=== PATIENT | male | born 1965 | race Caucasian/White ===

== ENCOUNTER 2020-01-09 21:21 | Inpatient (IN) ==
[2020-01-09] MEDS ORDERED: ONDANSETRON 4 MG/2 ML VIAL IV STA (21:40)
[2020-01-09] MEDS ORDERED: fentaNYL 100 MCG/2 ML VIAL IV STA (21:40)
[2020-01-09] MEDS ORDERED: LACTATED RINGERS 1,000 ML IV STA (21:40)
[2020-01-09 21:48] LABS: Basophils % 0.3 % (0.0-0.8); Eosinophils # 0.1 10*3/uL (0.0-0.87); Eosinophils % 0.4 % (0.00-10.9); Hematocrit 37.1 VOL% (42.0-52.0); Hemoglobin 11.2 GM/DL (14.0-18.0); Immature Granulocytes % 0.8 %; Lymphocytes # 0.7 10*3/uL (1.4-4.0); Mean Corpuscular HGB Conc 30.2 GM/DL (32-36); Mean Corpuscular Volume 94.6 FL (87-102); Mean Platelet Volume 10.5 FL (9.6-12.0); Neutrophils % 86.5 % (38.7-73.9); Platelet Count 216 T/CUMM (130-400); Red Blood Count 3.92 MC/CUMM (3.8-5.5); Red Cell Distribution Width 13.2 % (9.3-17.3); White Blood Count 11.9 T/CUMM (4-12)
[2020-01-09 22:10] LABS: Alanine Aminotransferase 34 U/L (16-61); Albumin 3.4 G/DL (3.4-5.0); Alkaline Phosphatase 94 U/L (45-117); Amylase 42 U/L (25-115); Aspartate Amino Transferase 61 U/L (0-37); Blood Urea Nitrogen 26 MG/DL (7-18); CKMB % 1.9 %; Estimated Glom Filtration Rate 79 ML/MIN; Ferritin 141.8 ng/ml (26-388); Glucose 101 MG/DL (74-106); Total Protein 7.7 G/DL (6.4-8.3)
[2020-01-09 22:11] LABS: Troponin I 0.052 NG/ML (0.00-0.045)
[2020-01-09 22:26] LABS: PT Patient Result 10.7 SECS (9.8-11.9); Partial Thromboplastin Time 28.9 SECS (23.9-33.8)
[2020-01-09] MEDS ORDERED: AZITHROMYCIN INJ 500 MG in SODIUM CHLORIDE 0.9% 250 ML IV STA (23:31)
[2020-01-09] MEDS ORDERED: ACETAMINOPHEN 500 MG TABLET PO PRN (23:34)
[2020-01-09] MEDS ORDERED: ONDANSETRON 4 MG/2 ML VIAL IV PRN (23:34)
[2020-01-09] MEDS ORDERED: fentaNYL 100 MCG/2 ML VIAL IV PRN (23:34)
[2020-01-10] MEDS ORDERED: hydrALAZINE 20 MG/1 ML VIAL IV ONE (00:05)
[2020-01-10] MEDS ORDERED: hydrALAZINE 20 MG/1 ML VIAL ONE (00:14)
[2020-01-10] MEDS ORDERED: hydrALAZINE 20 MG/1 ML VIAL IV PRN (01:03)
[2020-01-10] MEDS: HYDROmorphone 2 MG/1 ML VIAL IV PRN ×2 (01:39→21:13)
[2020-01-10 06:21] LABS: Basophils % 0.4 % (0.0-0.8); Eosinophils # 0.1 10*3/uL (0.0-0.87); Hematocrit 36.2 VOL% (42.0-52.0); Hemoglobin 11.3 GM/DL (14.0-18.0); Immature Granulocytes % 0.6 %; Immature Granulocytes Absolute 0.05 #; Lymphocytes # 1.3 10*3/uL (1.4-4.0); Lymphocytes % 16.6 % (21.2-54.2); Mean Corpuscular HGB Conc 31.2 GM/DL (32-36); Mean Corpuscular Volume 93.1 FL (87-102); Mean Platelet Volume 10.3 FL (9.6-12.0); Monocytes % 6.7 % (1.7-12.7); Neutrophils % 74.7 % (38.7-73.9); Platelet Count 205 T/CUMM (130-400); Red Blood Count 3.89 MC/CUMM (3.8-5.5); Red Cell Distribution Width 13.1 % (9.3-17.3); White Blood Count 7.8 T/CUMM (4-12)
[2020-01-10 06:38] LABS: Apearance,Urine CLEAR (Clear); Bilirubin,Urine Negative (Negative); Blood, Urine Negative (Negative); Glucose,Urine (UA) Negative (Negative); Ketones,Urine Negative (Negative); Nitrite,Urine Negative (Negative); Protein,Urine Negative; RBC,Urine 2 /HPF (0-4); Urine Color Yellow (Yellow); Urine Specific Gravity 1.029 (1.001-1.035); Urine Urobilinogen < 2.0 EU/DL (0.2-1.0); WBC,Urine <1 /HPF (0-6)
[2020-01-10 06:45] LABS: Barbiturates Screen,Urine Negative (Negative); Benzodiazepines Screen,Urine Negative (Negative); Cannabinoid Screen,Urine Negative (Negative); Opiate Screen,Urine Positive (Negative); Phencyclidine Screen,Urine Negative (Negative)
[2020-01-10] MEDS: PANTOPRAZOLE 40 MG TABLET PO SCH (08:56)
[2020-01-10] MEDS: cloNIDine 0.1 MG TABLET PO SCH ×2 (08:56→20:53)
[2020-01-10] MEDS: HYDROXYCHLOROQUINE 200 MG TABLET PO SCH ×2 (08:56→20:53)
[2020-01-10] MEDS ORDERED: ALBUTEROL/IPRATROPIUM 3 ML NEB RESP TX PRN (09:02)
[2020-01-10] MEDS ORDERED: LIDOCAINE 1%/EPI INJ 20 ML VIAL ONE (09:39)
[2020-01-10 09:45] LABS: Calcium 8.5 MG/DL (8.5-10.1); Osmolality,Calculated 273.8 MOS/KG (273-304)
[2020-01-10] MEDS ORDERED: ALBUTEROL/IPRATROPIUM 3 ML NEB RESP TX SCH (10:00)
[2020-01-10] MEDS: LACTATED RINGERS 1,000 ML IV SCH ×2 (10:46→17:53)
[2020-01-10] MEDS ORDERED: KETAMINE 500 MG/10 ML VIAL ONE (11:24)
[2020-01-10] MEDS ORDERED: fentaNYL 100 MCG/2 ML VIAL ONE (11:25)
[2020-01-10] MEDS ORDERED: MIDAZOLAM 2 MG/2 ML VIAL ONE (11:25)
[2020-01-10] MEDS: ALBUTEROL INHALER 8 GM INH SCH ×3 (12:32→20:53)
[2020-01-10] MEDS ORDERED: AZITHROMYCIN INJ 500 MG in SODIUM CHLORIDE 0.9% 250 ML IV SCH (22:00)
[2020-01-11] MEDS: ALBUTEROL INHALER 8 GM INH SCH ×7 (00:31→23:39)
[2020-01-11] MEDS: LACTATED RINGERS 1,000 ML IV SCH (02:04)
[2020-01-11] MEDS: HYDROmorphone 2 MG/1 ML VIAL IV PRN ×3 (02:04→08:50)
[2020-01-11 06:06] LABS: Basophils # 0.1 10*3/uL (0.0-0.2); Basophils % 0.7 % (0.0-0.8); Eosinophils # 0.3 10*3/uL (0.0-0.87); Eosinophils % 3.6 % (0.00-10.9); Hematocrit 37.2 VOL% (42.0-52.0); Hemoglobin 11.5 GM/DL (14.0-18.0); Immature Granulocytes % 0.4 %; Immature Granulocytes Absolute 0.03 #; Lymphocytes # 1.6 10*3/uL (1.4-4.0); Lymphocytes % 20.4 % (21.2-54.2); Mean Corpuscular HGB Conc 30.9 GM/DL (32-36); Mean Corpuscular Volume 93.5 FL (87-102); Mean Platelet Volume 10.6 FL (9.6-12.0); Monocytes % 7.3 % (1.7-12.7); Neutrophils % 67.6 % (38.7-73.9); Platelet Count 197 T/CUMM (130-400); Red Blood Count 3.98 MC/CUMM (3.8-5.5); Red Cell Distribution Width 12.9 % (9.3-17.3); White Blood Count 7.7 T/CUMM (4-12)
[2020-01-11 06:37] LABS: Albumin 2.5 G/DL (3.4-5.0); Calcium 8.6 MG/DL (8.5-10.1); Total Protein 6.5 G/DL (6.4-8.3)
[2020-01-11] MEDS ORDERED: HYDROXYCHLOROQUINE 200 MG TABLET PO SCH (09:00)
[2020-01-11] MEDS: cloNIDine 0.1 MG TABLET PO SCH ×2 (09:42→20:29)
[2020-01-11] MEDS: AZITHROMYCIN 250 MG TABLET PO SCH (09:42)
[2020-01-11] MEDS: PANTOPRAZOLE 40 MG TABLET PO SCH (09:42)
[2020-01-12] MEDS: ALBUTEROL INHALER 8 GM INH SCH ×5 (03:56→20:36)
[2020-01-12 06:34] LABS: Basophils # 0.1 10*3/uL (0.0-0.2); Basophils % 0.8 % (0.0-0.8); Eosinophils # 0.6 10*3/uL (0.0-0.87); Eosinophils % 7.7 % (0.00-10.9); Hematocrit 42.7 VOL% (42.0-52.0); Hemoglobin 13.4 GM/DL (14.0-18.0); Immature Granulocytes % 0.7 %; Immature Granulocytes Absolute 0.05 #; Lymphocytes # 1.2 10*3/uL (1.4-4.0); Lymphocytes % 16.4 % (21.2-54.2); Mean Corpuscular HGB Conc 31.4 GM/DL (32-36); Mean Platelet Volume 10.5 FL (9.6-12.0); Monocytes % 8.2 % (1.7-12.7); Neutrophils % 66.2 % (38.7-73.9); Platelet Count 228 T/CUMM (130-400); Red Blood Count 4.64 MC/CUMM (3.8-5.5); Red Cell Distribution Width 12.6 % (9.3-17.3); White Blood Count 7.4 T/CUMM (4-12)
[2020-01-12 06:42] LABS: Calcium 8.5 MG/DL (8.5-10.1); Osmolality,Calculated 271.1 MOS/KG (273-304)
[2020-01-12] MEDS: AZITHROMYCIN 250 MG TABLET PO SCH (10:39)
[2020-01-12] MEDS: PANTOPRAZOLE 40 MG TABLET PO SCH (10:39)
[2020-01-12] MEDS: cloNIDine 0.1 MG TABLET PO SCH ×2 (10:39→21:16)
[2020-01-12] MEDS: HYDROmorphone 2 MG/1 ML VIAL IV PRN (21:24)
[2020-01-13] MEDS: ALBUTEROL INHALER 8 GM INH SCH ×6 (00:30→20:36)
[2020-01-13 06:07] LABS: Basophils # 0.1 10*3/uL (0.0-0.2); Basophils % 0.6 % (0.0-0.8); Eosinophils % 11.9 % (0.00-10.9); Hematocrit 40.3 VOL% (42.0-52.0); Hemoglobin 12.8 GM/DL (14.0-18.0); Immature Granulocytes % 0.7 %; Immature Granulocytes Absolute 0.06 #; Lymphocytes # 1.2 10*3/uL (1.4-4.0); Lymphocytes % 14.9 % (21.2-54.2); Mean Corpuscular HGB Conc 31.8 GM/DL (32-36); Mean Platelet Volume 10.1 FL (9.6-12.0); Monocytes % 8.6 % (1.7-12.7); Neutrophils % 63.3 % (38.7-73.9); Platelet Count 247 T/CUMM (130-400); Red Blood Count 4.48 MC/CUMM (3.8-5.5); Red Cell Distribution Width 12.7 % (9.3-17.3); White Blood Count 8.2 T/CUMM (4-12)
[2020-01-13 06:30] LABS: Calcium 8.4 MG/DL (8.5-10.1); Osmolality,Calculated 279.8 MOS/KG (273-304)
[2020-01-13] MEDS: cloNIDine 0.1 MG TABLET PO SCH ×2 (09:14→20:40)
[2020-01-13] MEDS: PANTOPRAZOLE 40 MG TABLET PO SCH (09:14)
[2020-01-13] MEDS: AZITHROMYCIN 250 MG TABLET PO SCH (09:15)
[2020-01-13 09:24] LABS: Band Neutrophils 2 % (0-10); Eosinophils 8 % (0-10); Hypochromasia 1+; Lymphocytes 9 % (20-55); Segmented Neutrophils 76 % (50-85); Total Cells Counted 100
[2020-01-13 09:25] LABS: Platelet Estimate Normal; Polychromasia Slight
[2020-01-13] MEDS: HYDROmorphone 2 MG/1 ML VIAL IV PRN (21:17)
[2020-01-14] MEDS: ALBUTEROL INHALER 8 GM INH SCH ×4 (00:05→11:24)
[2020-01-14] MEDS: HYDROmorphone 2 MG/1 ML VIAL IV PRN (08:27)
[2020-01-14] MEDS: PANTOPRAZOLE 40 MG TABLET PO SCH (08:27)
[2020-01-14] MEDS: AZITHROMYCIN 250 MG TABLET PO SCH (08:27)
[2020-01-14] MEDS: cloNIDine 0.1 MG TABLET PO SCH (08:28)
[2020-01-14 12:57] VITALS: BP 114/81
== END 2020-01-14 13:25 | disposition home or self-care (01) | DRG 964 ==
LOC: EDUNIT# → N.ED 21:21 → N.EDINP 23:33 → N.2E 01-10 00:03
PROVIDERS: ADMIT Surgery; ATTEND Surgery

== ENCOUNTER 2020-10-01 01:25 | Observation (INO) ==
[2020-10-01] MEDS ORDERED: ONDANSETRON 4 MG/2 ML VIAL IV PRN (03:58)
[2020-10-01] MEDS ORDERED: DEXTROSE 50% 25 GM/50 ML VIAL IV PRN (03:58)
[2020-10-01] MEDS ORDERED: NICOTINE 21 MG/24 HR PATCH TRANSDERM PRN (03:58)
[2020-10-01] MEDS ORDERED: GLUCAGON 1 MG VIAL IM PRN (03:58)
[2020-10-01] MEDS ORDERED: diphenhydrAMINE CAP 25 MG CAPSULE PO PRN (03:58)
[2020-10-01] MEDS ORDERED: guaiFENesin/DM ER 600-30 MG TABLET PO PRN (03:58)
[2020-10-01] MEDS ORDERED: ACETAMINOPHEN 325 MG TABLET PO PRN (03:58)
[2020-10-01 06:31] LABS: Basophils # 0.1 10*3/uL (0.0-0.2); Basophils % 0.7 % (0.0-0.8); Eosinophils # 0.3 10*3/uL (0.0-0.87); Eosinophils % 3.4 % (0.00-10.9); Hematocrit 37.9 VOL% (42.0-52.0); Hemoglobin 11.8 GM/DL (14.0-18.0); Immature Granulocytes % 1.3 %; Immature Granulocytes Absolute 0.11 #; Lymphocytes # 1.5 10*3/uL (1.4-4.0); Lymphocytes % 18.6 % (21.2-54.2); Mean Corpuscular HGB Conc 31.1 GM/DL (32-36); Mean Corpuscular Volume 86.1 FL (87-102); Mean Platelet Volume 11.4 FL (9.6-12.0); Monocytes % 8.3 % (1.7-12.7); Neutrophils % 67.7 % (38.7-73.9); Platelet Count 224 T/CUMM (130-400); White Blood Count 8.2 T/CUMM (4-12)
[2020-10-01 06:48] LABS: Albumin 2.9 G/DL (3.4-5.0); Bilirubin,Total 0.7 MG/DL (0.2-1.0); Calcium 8.5 MG/DL (8.5-10.1); Osmolality,Calculated 285.3 MOS/KG (273-304); Risk Ratio 2.57; VLDL CHOLESTEROL 20.4 MG/DL
[2020-10-01] MEDS ORDERED: carvediloL 3.125 MG TABLET PO SCH (09:18)
[2020-10-01] MEDS: hydrALAZINE 20 MG/1 ML VIAL IV PRN ×2 (09:46→15:53)
[2020-10-01] MEDS: ASPIRIN EC 81 MG TABLET PO SCH (09:46)
[2020-10-01] MEDS: PANTOPRAZOLE 20 MG TABLET PO SCH (12:38)
[2020-10-01] MEDS: carvediloL 6.25 MG TABLET PO SCH (22:11)
[2020-10-02] MEDS: hydrALAZINE 20 MG/1 ML VIAL IV PRN (05:32)
[2020-10-02 05:57] LABS: Basophils # 0.1 10*3/uL (0.0-0.2); Basophils % 0.8 % (0.0-0.8); Eosinophils # 0.4 10*3/uL (0.0-0.87); Eosinophils % 4.8 % (0.00-10.9); Hematocrit 38.5 VOL% (42.0-52.0); Immature Granulocytes % 0.8 %; Immature Granulocytes Absolute 0.06 #; Lymphocytes # 1.6 10*3/uL (1.4-4.0); Lymphocytes % 21.5 % (21.2-54.2); Mean Corpuscular HGB Conc 31.2 GM/DL (32-36); Mean Corpuscular Volume 85.4 FL (87-102); Mean Platelet Volume 10.4 FL (9.6-12.0); Monocytes % 9.4 % (1.7-12.7); Neutrophils % 62.7 % (38.7-73.9); Platelet Count 217 T/CUMM (130-400); Red Blood Count 4.51 MC/CUMM (3.8-5.5); Red Cell Distribution Width 14.9 % (9.3-17.3); White Blood Count 7.3 T/CUMM (4-12)
[2020-10-02 06:06] LABS: Osmolality,Calculated 282.7 MOS/KG (273-304)
[2020-10-02 07:02] LABS: HIV Antigen/Antibody Result Nonreactive (Nonreactive)
[2020-10-02] MEDS: ASPIRIN EC 81 MG TABLET PO SCH (09:26)
[2020-10-02] MEDS: carvediloL 6.25 MG TABLET PO SCH ×2 (09:26→21:29)
[2020-10-02] MEDS: PANTOPRAZOLE 20 MG TABLET PO SCH (09:26)
[2020-10-03 05:42] LABS: Basophils # 0.1 10*3/uL (0.0-0.2); Basophils % 0.7 % (0.0-0.8); Eosinophils # 0.3 10*3/uL (0.0-0.87); Eosinophils % 4.2 % (0.00-10.9); Hematocrit 40.5 VOL% (42.0-52.0); Hemoglobin 12.7 GM/DL (14.0-18.0); Immature Granulocytes % 0.7 %; Immature Granulocytes Absolute 0.06 #; Lymphocytes # 1.6 10*3/uL (1.4-4.0); Mean Corpuscular HGB Conc 31.4 GM/DL (32-36); Mean Corpuscular Volume 84.4 FL (87-102); Mean Platelet Volume 10.3 FL (9.6-12.0); Monocytes % 9.6 % (1.7-12.7); Neutrophils % 64.8 % (38.7-73.9); Platelet Count 237 T/CUMM (130-400); Red Cell Distribution Width 14.9 % (9.3-17.3)
[2020-10-03 06:17] LABS: Calcium 8.5 MG/DL (8.5-10.1); Osmolality,Calculated 278.7 MOS/KG (273-304)
[2020-10-03] MEDS: ASPIRIN EC 81 MG TABLET PO SCH (09:01)
[2020-10-03] MEDS: PANTOPRAZOLE 20 MG TABLET PO SCH (09:02)
[2020-10-03] MEDS: carvediloL 6.25 MG TABLET PO SCH (09:02)
[2020-10-03] MEDS: hydrALAZINE 20 MG/1 ML VIAL IV PRN (09:04)
[2020-10-03 15:38] VITALS: BP 154/93
== END 2020-10-03 14:06 | disposition home or self-care (01) ==
LOC: N.TELEN → SUATTDRO 02:51
PROVIDERS: ADMIT Internal Medicine; ATTEND Internal Medicine

== ENCOUNTER 2020-10-04 19:20 | Observation (INO) ==
[2020-10-04 19:42] LABS: Basophils # 0.1 10*3/uL (0.0-0.2); Basophils % 0.9 % (0.0-0.8); Eosinophils # 0.3 10*3/uL (0.0-0.87); Hematocrit 37.4 VOL% (42.0-52.0); Hemoglobin 11.8 GM/DL (14.0-18.0); Immature Granulocytes Absolute 0.09 #; Lymphocytes # 1.5 10*3/uL (1.4-4.0); Lymphocytes % 16.4 % (21.2-54.2); Mean Corpuscular HGB Conc 31.6 GM/DL (32-36); Mean Corpuscular Volume 85.4 FL (87-102); Mean Platelet Volume 10.3 FL (9.6-12.0); Monocytes % 8.5 % (1.7-12.7); Neutrophils % 70.2 % (38.7-73.9); Platelet Count 234 T/CUMM (130-400); Red Blood Count 4.38 MC/CUMM (3.8-5.5); White Blood Count 9.1 T/CUMM (4-12)
[2020-10-04 20:00] LABS: Alanine Aminotransferase 16 U/L (16-61); Alkaline Phosphatase 145 U/L (45-117); Aspartate Amino Transferase 17 U/L (0-37); Bilirubin,Total < 0.39 MG/DL (0.2-1.0); Blood Urea Nitrogen 23 MG/DL (7-18); Calcium 8.4 MG/DL (8.5-10.1); Estimated Glom Filtration Rate 63 ML/MIN; Glucose 124 MG/DL (74-106); Osmolality,Calculated 287.1 MOS/KG (273-304); Total Protein 6.7 G/DL (6.4-8.3)
[2020-10-04] MEDS ORDERED: LEVOFLOXACIN INJ 500 MG in PREMIX 1 EACH IV STA (21:24)
[2020-10-04] MEDS ORDERED: FUROSEMIDE 40 MG/4 ML VIAL IV STA (21:24)
[2020-10-04] MEDS ORDERED: GLUCAGON 1 MG VIAL IM PRN (21:30)
[2020-10-04] MEDS ORDERED: ACETAMINOPHEN 325 MG TABLET PO PRN (21:30)
[2020-10-04] MEDS ORDERED: MAGNESIUM SULF RIDER 2 GM in PREMIX 1 EACH IV PRN (21:30)
[2020-10-04] MEDS ORDERED: MAGNESIUM SULF RIDER 4 GM in PREMIX 1 EACH IV PRN (21:30)
[2020-10-04] MEDS ORDERED: ZALEPLON 5 MG CAPSULE PO PRN (21:30)
[2020-10-04] MEDS ORDERED: ONDANSETRON 4 MG/2 ML VIAL IV PRN (21:30)
[2020-10-04] MEDS ORDERED: DEXTROSE 50% 25 GM/50 ML VIAL IV PRN (21:30)
[2020-10-04] MEDS ORDERED: KETOROLAC 10 MG TABLET PO PRN (21:35)
[2020-10-04 21:46] LABS: Bilirubin,Urine Negative (Negative); Blood, Urine Small mg/dL (Negative); Glucose,Urine (UA) Negative (Negative); Ketones,Urine Negative (Negative); Mucus,Urine Occasional /LPF (Occasional); Nitrite,Urine Negative (Negative); Protein,Urine Negative; RBC,Urine <1 /HPF (0-4); Urine Appearance CLEAR (Clear); Urine Color Yellow (Yellow); Urine Urobilinogen < 2.0 EU/DL (0.2-1.0); WBC,Urine <1 /HPF (0-6)
[2020-10-04 21:52] LABS: Barbiturates Screen,Urine Negative (Negative); Benzodiazepines Screen,Urine Negative (Negative); Cannabinoid Screen,Urine Negative (Negative); Opiate Screen,Urine Negative (Negative); Phencyclidine Screen,Urine Negative (Negative)
[2020-10-04] MEDS ORDERED: RALTEGRAVIR 400 MG TABLET PO SCH (22:00)
[2020-10-04] MEDS: ENOXAPARIN 40 MG/0.4 ML SYRINGE SUBCUT SCH (22:10)
[2020-10-04] MEDS: carvediloL 6.25 MG TABLET PO SCH (22:15)
[2020-10-05] MEDS: ALBUTEROL/IPRATROPIUM 3 ML NEB RESP TX SCH ×4 (01:00→19:45)
[2020-10-05 06:32] LABS: Basophils # 0.1 10*3/uL (0.0-0.2); Basophils % 0.6 % (0.0-0.8); Eosinophils # 0.3 10*3/uL (0.0-0.87); Eosinophils % 3.4 % (0.00-10.9); Hemoglobin 12.5 GM/DL (14.0-18.0); Immature Granulocytes % 0.9 %; Immature Granulocytes Absolute 0.08 #; Lymphocytes # 1.4 10*3/uL (1.4-4.0); Lymphocytes % 16.5 % (21.2-54.2); Mean Corpuscular HGB Conc 31.3 GM/DL (32-36); Mean Corpuscular Volume 84.7 FL (87-102); Mean Platelet Volume 10.9 FL (9.6-12.0); Monocytes % 8.6 % (1.7-12.7); Platelet Count 228 T/CUMM (130-400); Red Blood Count 4.72 MC/CUMM (3.8-5.5); Red Cell Distribution Width 14.9 % (9.3-17.3); White Blood Count 8.5 T/CUMM (4-12)
[2020-10-05 07:04] LABS: Bilirubin,Total 0.5 MG/DL (0.2-1.0); Calcium 8.7 MG/DL (8.5-10.1); Osmolality,Calculated 276.7 MOS/KG (273-304); Total Protein 7.3 G/DL (6.4-8.3)
[2020-10-05] MEDS ORDERED: INSULIN REGULAR 100 UNIT/ML SUBCUT SCH (07:30)
[2020-10-05] MEDS: PANTOPRAZOLE 40 MG TABLET PO SCH (09:00)
[2020-10-05] MEDS ORDERED: EMTRICITABINE/TENOFOVIR 200-300 MG TABLET PO SCH (09:00)
[2020-10-05] MEDS: carvediloL 6.25 MG TABLET PO SCH ×2 (09:00→16:45)
[2020-10-05] MEDS: ASPIRIN EC 81 MG TABLET PO SCH (09:00)
[2020-10-05] MEDS: FUROSEMIDE 40 MG/4 ML VIAL IV SCH ×2 (09:00→16:46)
[2020-10-05] MEDS: CYCLOBENZAPRINE 10 MG TABLET PO SCH (17:24)
[2020-10-05] MEDS: tiZANidine 4 MG TABLET PO SCH (17:24)
[2020-10-05] MEDS: ENOXAPARIN 40 MG/0.4 ML SYRINGE SUBCUT SCH (20:34)
[2020-10-05] MEDS ORDERED: LEVOFLOXACIN INJ 750 MG in PREMIX 1 EACH IV SCH (21:00)
[2020-10-06] MEDS: ALBUTEROL/IPRATROPIUM 3 ML NEB RESP TX SCH ×2 (00:50→07:35)
[2020-10-06 06:41] LABS: Basophils # 0.1 10*3/uL (0.0-0.2); Basophils % 0.7 % (0.0-0.8); Eosinophils # 0.3 10*3/uL (0.0-0.87); Eosinophils % 3.2 % (0.00-10.9); Hematocrit 43.1 VOL% (42.0-52.0); Hemoglobin 13.6 GM/DL (14.0-18.0); Immature Granulocytes % 0.9 %; Immature Granulocytes Absolute 0.07 #; Lymphocytes # 1.4 10*3/uL (1.4-4.0); Lymphocytes % 17.6 % (21.2-54.2); Mean Corpuscular HGB Conc 31.6 GM/DL (32-36); Mean Corpuscular Volume 84.8 FL (87-102); Mean Platelet Volume 10.5 FL (9.6-12.0); Neutrophils % 67.6 % (38.7-73.9); Platelet Count 236 T/CUMM (130-400); Red Blood Count 5.08 MC/CUMM (3.8-5.5); Red Cell Distribution Width 14.7 % (9.3-17.3); White Blood Count 8.1 T/CUMM (4-12)
[2020-10-06 07:05] LABS: Calcium 8.6 MG/DL (8.5-10.1)
[2020-10-06] MEDS: carvediloL 6.25 MG TABLET PO SCH (09:50)
[2020-10-06] MEDS: ASPIRIN EC 81 MG TABLET PO SCH (09:50)
[2020-10-06] MEDS: PANTOPRAZOLE 40 MG TABLET PO SCH (09:50)
[2020-10-06 11:51] VITALS: BP 138/80
== END 2020-10-06 12:49 | disposition home or self-care (01) ==
LOC: N.ED 19:20 → N.EDINP 19:20 → N.5E 22:53
PROVIDERS: ADMIT Internal Medicine; ATTEND Internal Medicine

== ENCOUNTER 2021-03-20 21:39 | Inpatient (IN) ==
[2021-03-20 22:01] LABS: Basophils % 0.4 % (0.0-0.8); Eosinophils # 0.1 10*3/uL (0.0-0.87); Eosinophils % 1.4 % (0.00-10.9); Hematocrit 42.1 VOL% (42.0-52.0); Hemoglobin 13.2 GM/DL (14.0-18.0); Immature Granulocytes % 0.3 %; Immature Granulocytes Absolute 0.03 #; Lymphocytes # 1.2 10*3/uL (1.4-4.0); Lymphocytes % 13.1 % (21.2-54.2); Mean Corpuscular HGB Conc 31.4 GM/DL (32-36); Mean Corpuscular Volume 87.7 FL (87-102); Monocytes % 9.8 % (1.7-12.7); Platelet Count 188 T/CUMM (130-400); Red Cell Distribution Width 15.2 % (9.3-17.3); White Blood Count 9.5 T/CUMM (4-12)
[2021-03-20] MEDS ORDERED: FUROSEMIDE 40 MG/4 ML VIAL IV STA (22:10)
[2021-03-20] MEDS ORDERED: ALBUTEROL/IPRATROPIUM 3 ML NEB RESP TX STA (22:10)
[2021-03-20] MEDS ORDERED: ASPIRIN 325 MG TABLET PO STA (22:10)
[2021-03-20] MEDS ORDERED: ONDANSETRON 4 MG/2 ML VIAL IV STA (22:10)
[2021-03-20] MEDS ORDERED: MORPHINE 4 MG/1 ML VIAL IV STA (22:10)
[2021-03-20] MEDS ORDERED: methylPREDNISolone SOD SUC 125 MG/2 ML VIAL IV STA (22:10)
[2021-03-20 22:12] LABS: INR 1.2; Partial Thromboplastin Time 27.6 SECS (23.9-33.8)
[2021-03-20 22:28] LABS: Albumin 2.8 G/DL (3.4-5.0); Bilirubin,Total 0.7 MG/DL (0.2-1.0); Calcium 7.7 MG/DL (8.5-10.1); Osmolality,Calculated 282.4 MOS/KG (273-304); Potassium 3.8 MMOL/L (3.5-5.1); Total Protein 6.1 G/DL (6.4-8.2)
[2021-03-20 22:48] LABS: Bacteria,Urine Moderate /HPF (Few); Bilirubin,Urine Negative (Negative); Blood, Urine Small mg/dL (Negative); Glucose,Urine (UA) Negative (Negative); Ketones,Urine Negative (Negative); Nitrite,Urine Positive (Negative); Protein,Urine 100 MG/DL; RBC,Urine 30 /HPF (0-4); Urine Appearance Slightly Hazy (Clear); Urine Color Yellow (Yellow); Urine Specific Gravity 1.013 (1.001-1.035); Urine Urobilinogen < 2.0 EU/DL (0.2-1.0)
[2021-03-20 23:05] LABS: Barbiturates Screen,Urine Negative (Negative); Benzodiazepines Screen,Urine Negative (Negative); Cannabinoid Screen,Urine Negative (Negative); Opiate Screen,Urine Negative (Negative); Phencyclidine Screen,Urine Negative (Negative)
[2021-03-20] MEDS ORDERED: cefTRIAXone 1,000 MG in SODIUM CHLORIDE 0.9% 100 ML IV STA (23:28)
[2021-03-21] MEDS ORDERED: ONDANSETRON 4 MG/2 ML VIAL IV PRN
[2021-03-21] MEDS ORDERED: ACETAMINOPHEN 325 MG TABLET PO PRN
[2021-03-21] MEDS ORDERED: MORPHINE 4 MG/1 ML VIAL IV PRN
[2021-03-21] MEDS ORDERED: ZALEPLON 5 MG CAPSULE PO PRN
[2021-03-21] MEDS ORDERED: DEXTROSE 50% 25 GM/50 ML VIAL IV PRN
[2021-03-21] MEDS ORDERED: MAGNESIUM SULF RIDER 4 GM/100 ML PREMIX IV PRN
[2021-03-21] MEDS ORDERED: GLUCAGON 1 MG VIAL IM PRN
[2021-03-21] MEDS ORDERED: MAGNESIUM SULF RIDER 2 GM/50 ML PREMIX IV PRN
[2021-03-21] MEDS ORDERED: ENOXAPARIN 40 MG/0.4 ML SYRINGE SUBCUT SCH
[2021-03-21] MEDS ORDERED: ALBUTEROL/IPRATROPIUM 3 ML NEB RESP TX PRN (00:07)
[2021-03-21 04:57] LABS: Basophils % 0.1 % (0.0-0.8); Hematocrit 42.8 VOL% (42.0-52.0); Hemoglobin 14.1 GM/DL (14.0-18.0); Immature Granulocytes % 0.5 %; Immature Granulocytes Absolute 0.04 #; Lymphocytes # 0.4 10*3/uL (1.4-4.0); Lymphocytes % 5.4 % (21.2-54.2); Mean Corpuscular HGB Conc 32.9 GM/DL (32-36); Mean Corpuscular Volume 85.4 FL (87-102); Mean Platelet Volume 11.3 FL (9.6-12.0); Monocytes % 1.3 % (1.7-12.7); Neutrophils % 92.7 % (38.7-73.9); Platelet Count 188 T/CUMM (130-400); Red Blood Count 5.01 MC/CUMM (3.8-5.5); Red Cell Distribution Width 15.1 % (9.3-17.3)
[2021-03-21 05:38] LABS: Albumin 2.8 G/DL (3.4-5.0); Bilirubin,Total 0.5 MG/DL (0.2-1.0); Calcium 7.7 MG/DL (8.5-10.1); Osmolality,Calculated 280.8 MOS/KG (273-304); Potassium 3.7 MMOL/L (3.5-5.1); Total Protein 6.8 G/DL (6.4-8.2)
[2021-03-21 05:45] LABS: Band Neutrophils 1 % (0-10); Hypochromasia 1+; Lymphocytes 4 % (20-55); Microcytosis 1+; Ovalocytes Slight; Platelet Estimate Adequate; Segmented Neutrophils 93 % (50-85); Total Cells Counted 100
[2021-03-21] MEDS: ASPIRIN EC 81 MG TABLET PO SCH (08:35)
[2021-03-21] MEDS: PANTOPRAZOLE 40 MG TABLET PO SCH (08:35)
[2021-03-21] MEDS: FUROSEMIDE 40 MG/4 ML VIAL IV SCH ×2 (08:36→16:41)
[2021-03-21] MEDS ORDERED: carvediloL 6.25 MG TABLET PO SCH (09:00)
[2021-03-21] MEDS ORDERED: ENOXAPARIN 80 MG/0.8 ML SYRINGE SUBCUT SCH (09:00)
[2021-03-21] MEDS: carvediloL 12.5 MG TABLET PO SCH (21:17)
[2021-03-21] MEDS: cefTRIAXone 1,000 MG in SODIUM CHLORIDE 0.9% 100 ML IV SCH (23:40)
[2021-03-22 04:56] LABS: Basophils % 0.1 % (0.0-0.8); Hemoglobin 13.6 GM/DL (14.0-18.0); Immature Granulocytes % 0.6 %; Immature Granulocytes Absolute 0.13 #; Mean Corpuscular HGB Conc 32.4 GM/DL (32-36); Mean Corpuscular Volume 86.2 FL (87-102); Mean Platelet Volume 11.7 FL (9.6-12.0); Monocytes % 7.4 % (1.7-12.7); Neutrophils % 86.9 % (38.7-73.9); Platelet Count 223 T/CUMM (130-400); Red Blood Count 4.87 MC/CUMM (3.8-5.5); White Blood Count 20.2 T/CUMM (4-12)
[2021-03-22 05:47] LABS: Calcium 7.7 MG/DL (8.5-10.1); Osmolality,Calculated 284.4 MOS/KG (273-304); Potassium 3.5 MMOL/L (3.5-5.1)
[2021-03-22 06:26] LABS: Band Neutrophils 4 % (0-10); Lymphocytes 4 % (20-55); Segmented Neutrophils 82 % (50-85); Total Cells Counted 100
[2021-03-22 06:27] LABS: Anisocytosis 2+; Platelet Estimate Normal; Smudge Cells Few
[2021-03-22] MEDS: PANTOPRAZOLE 40 MG TABLET PO SCH (08:45)
[2021-03-22] MEDS: ASPIRIN EC 81 MG TABLET PO SCH (08:45)
[2021-03-22] MEDS: carvediloL 12.5 MG TABLET PO SCH ×2 (08:45→21:47)
[2021-03-22] MEDS: ENOXAPARIN 40 MG/0.4 ML SYRINGE SUBCUT SCH (08:46)
[2021-03-22] MEDS: FUROSEMIDE 40 MG/4 ML VIAL IV SCH ×2 (08:46→16:01)
[2021-03-22] MEDS ORDERED: VANCOMYCIN INJ 1,000 MG in SODIUM CHLORIDE 0.9% 250 ML IV ONE (09:53)
[2021-03-22] MEDS ORDERED: VANCOMYCIN INJ 1,000 MG in SODIUM CHLORIDE 0.9% 250 ML IV SCH (10:00)
[2021-03-22] MEDS ORDERED: VANCOMYCIN INJ 1,750 MG in SODIUM CHLORIDE 0.9% 500 ML IV ONE (11:00)
[2021-03-22 12:10] LABS: Basophils % 0.1 % (0.0-0.8); Eosinophils % 0.1 % (0.00-10.9); Hematocrit 47.1 VOL% (42.0-52.0); Hemoglobin 14.7 GM/DL (14.0-18.0); Immature Granulocytes % 0.5 %; Immature Granulocytes Absolute 0.11 #; Lymphocytes # 1.6 10*3/uL (1.4-4.0); Lymphocytes % 7.3 % (21.2-54.2); Mean Corpuscular HGB Conc 31.2 GM/DL (32-36); Mean Corpuscular Volume 87.5 FL (87-102); Monocytes % 6.5 % (1.7-12.7); Neutrophils % 85.5 % (38.7-73.9); Platelet Count 254 T/CUMM (130-400); Red Blood Count 5.38 MC/CUMM (3.8-5.5); Red Cell Distribution Width 15.2 % (9.3-17.3); White Blood Count 21.2 T/CUMM (4-12)
[2021-03-22 12:30] LABS: Band Neutrophils 3 % (0-10); Lymphocytes 11 % (20-55); Platelet Estimate Normal; Segmented Neutrophils 80 % (50-85); Total Cells Counted 100
[2021-03-22 12:31] LABS: Anisocytosis Slight; Macrocytosis Slight
[2021-03-22] MEDS: cefTRIAXone 1,000 MG in SODIUM CHLORIDE 0.9% 100 ML IV SCH (23:21)
[2021-03-22] MEDS: VANCOMYCIN INJ 1,250 MG in SODIUM CHLORIDE 0.9% 250 ML IV SCH (23:22)
[2021-03-23 05:44] LABS: Basophils # 0.1 10*3/uL (0.0-0.2); Basophils % 0.4 % (0.0-0.8); Eosinophils # 0.2 10*3/uL (0.0-0.87); Eosinophils % 1.2 % (0.00-10.9); Hematocrit 44.1 VOL% (42.0-52.0); Hemoglobin 13.9 GM/DL (14.0-18.0); Immature Granulocytes % 0.9 %; Immature Granulocytes Absolute 0.11 #; Lymphocytes # 2.4 10*3/uL (1.4-4.0); Lymphocytes % 18.5 % (21.2-54.2); Mean Corpuscular HGB Conc 31.5 GM/DL (32-36); Mean Corpuscular Volume 87.8 FL (87-102); Mean Platelet Volume 11.2 FL (9.6-12.0); Monocytes % 9.2 % (1.7-12.7); Neutrophils % 69.8 % (38.7-73.9); Platelet Count 222 T/CUMM (130-400); Red Blood Count 5.02 MC/CUMM (3.8-5.5); Red Cell Distribution Width 15.3 % (9.3-17.3); White Blood Count 12.8 T/CUMM (4-12)
[2021-03-23 06:02] LABS: Calcium 7.7 MG/DL (8.5-10.1); Osmolality,Calculated 282.4 MOS/KG (273-304); Potassium 3.2 MMOL/L (3.5-5.1)
[2021-03-23] MEDS ORDERED: POTASSIUM CHLORIDE 20 MEQ TABLET PO ONE (07:02)
[2021-03-23] MEDS: PANTOPRAZOLE 40 MG TABLET PO SCH (08:52)
[2021-03-23] MEDS: carvediloL 12.5 MG TABLET PO SCH ×2 (08:52→20:15)
[2021-03-23] MEDS: ASPIRIN EC 81 MG TABLET PO SCH (08:52)
[2021-03-23] MEDS: FUROSEMIDE 40 MG TABLET PO SCH ×2 (08:52→16:20)
[2021-03-23] MEDS: ENOXAPARIN 40 MG/0.4 ML SYRINGE SUBCUT SCH (08:53)
[2021-03-23] MEDS: VANCOMYCIN INJ 1,250 MG in SODIUM CHLORIDE 0.9% 250 ML IV SCH ×2 (11:35→23:29)
[2021-03-23] MEDS: POTASSIUM CHLORIDE 20 MEQ TABLET PO SCH (20:15)
[2021-03-23] MEDS: cefTRIAXone 1,000 MG in SODIUM CHLORIDE 0.9% 100 ML IV SCH (23:28)
[2021-03-24 06:36] LABS: Basophils # 0.1 10*3/uL (0.0-0.2); Eosinophils # 0.4 10*3/uL (0.0-0.87); Eosinophils % 5.1 % (0.00-10.9); Hematocrit 44.2 VOL% (42.0-52.0); Hemoglobin 13.8 GM/DL (14.0-18.0); Immature Granulocytes % 1.3 %; Immature Granulocytes Absolute 0.11 #; Lymphocytes # 2.3 10*3/uL (1.4-4.0); Mean Corpuscular HGB Conc 31.2 GM/DL (32-36); Mean Corpuscular Volume 87.9 FL (87-102); Mean Platelet Volume 10.8 FL (9.6-12.0); Monocytes % 10.1 % (1.7-12.7); Neutrophils % 56.5 % (38.7-73.9); Platelet Count 229 T/CUMM (130-400); Red Blood Count 5.03 MC/CUMM (3.8-5.5); Red Cell Distribution Width 15.2 % (9.3-17.3); White Blood Count 8.7 T/CUMM (4-12)
[2021-03-24 07:03] LABS: Calcium 8.2 MG/DL (8.5-10.1); Osmolality,Calculated 279.5 MOS/KG (273-304); Potassium 4.3 MMOL/L (3.5-5.1)
[2021-03-24] MEDS: ASPIRIN EC 81 MG TABLET PO SCH (09:07)
[2021-03-24] MEDS: POTASSIUM CHLORIDE 20 MEQ TABLET PO SCH ×2 (09:07→21:33)
[2021-03-24] MEDS: ENOXAPARIN 40 MG/0.4 ML SYRINGE SUBCUT SCH (09:07)
[2021-03-24] MEDS: carvediloL 12.5 MG TABLET PO SCH ×2 (09:08→21:33)
[2021-03-24] MEDS: PANTOPRAZOLE 40 MG TABLET PO SCH (09:08)
[2021-03-24] MEDS: FUROSEMIDE 40 MG TABLET PO SCH ×2 (09:08→15:20)
[2021-03-24 18:23] LABS: HIV Antigen/Antibody Result Nonreactive (Nonreactive)
[2021-03-25] MEDS: cefTRIAXone 1,000 MG in SODIUM CHLORIDE 0.9% 100 ML IV SCH (01:25)
[2021-03-25 05:21] LABS: Basophils # 0.1 10*3/uL (0.0-0.2); Eosinophils # 0.5 10*3/uL (0.0-0.87); Eosinophils % 6.3 % (0.00-10.9); Hematocrit 45.8 VOL% (42.0-52.0); Hemoglobin 14.6 GM/DL (14.0-18.0); Immature Granulocytes % 1.6 %; Immature Granulocytes Absolute 0.12 #; Lymphocytes # 1.9 10*3/uL (1.4-4.0); Lymphocytes % 25.2 % (21.2-54.2); Mean Corpuscular HGB Conc 31.9 GM/DL (32-36); Mean Corpuscular Volume 87.2 FL (87-102); Mean Platelet Volume 10.7 FL (9.6-12.0); Monocytes % 12.2 % (1.7-12.7); Neutrophils % 53.7 % (38.7-73.9); Platelet Count 246 T/CUMM (130-400); Red Blood Count 5.25 MC/CUMM (3.8-5.5); Red Cell Distribution Width 15.1 % (9.3-17.3); White Blood Count 7.6 T/CUMM (4-12)
[2021-03-25 05:46] LABS: Calcium 8.4 MG/DL (8.5-10.1); Osmolality,Calculated 279.8 MOS/KG (273-304); Potassium 3.6 MMOL/L (3.5-5.1)
[2021-03-25 05:49] LABS: Calcium 8.5 MG/DL (8.5-10.1); Osmolality,Calculated 282.5 MOS/KG (273-304); Potassium 3.6 MMOL/L (3.5-5.1)
[2021-03-25] MEDS: PANTOPRAZOLE 40 MG TABLET PO SCH (09:01)
[2021-03-25] MEDS: POTASSIUM CHLORIDE 20 MEQ TABLET PO SCH (09:01)
[2021-03-25] MEDS: ASPIRIN EC 81 MG TABLET PO SCH (09:01)
[2021-03-25] MEDS: ENOXAPARIN 40 MG/0.4 ML SYRINGE SUBCUT SCH (09:01)
[2021-03-25] MEDS: FUROSEMIDE 40 MG TABLET PO SCH (09:02)
[2021-03-25] MEDS: carvediloL 12.5 MG TABLET PO SCH (09:02)
[2021-03-25 12:24] VITALS: BP 149/92
[2021-03-25] MEDS ORDERED: lisinopriL 5 MG TABLET PO SCH (12:43)
== END 2021-03-25 13:37 | disposition home health service (06) | DRG 194 ==
LOC: EDBD → EDUNIT# → N.EDINP 21:39 → N.ED 21:39 → N.TELEN 03-21 00:43 → SUATTDRO 03-22 09:20
PROVIDERS: ADMIT Internal Medicine; ATTEND Internal Medicine

== ENCOUNTER 2021-04-03 04:08 | Observation (INO) ==
[2021-04-03] MEDS ORDERED: MORPHINE 2 MG/1 ML SYRINGE IV STA (04:14)
[2021-04-03] MEDS ORDERED: ONDANSETRON 4 MG/2 ML VIAL IV STA (04:14)
[2021-04-03] MEDS ORDERED: NITROGLYCERIN 2% OINT 1 INCH/GM PACK TOP STA (04:14)
[2021-04-03] MEDS ORDERED: ASPIRIN 325 MG TABLET PO STA (04:14)
[2021-04-03 04:46] LABS: Basophils # 0.1 10*3/uL (0.0-0.2); Basophils % 0.7 % (0.0-0.8); Eosinophils # 0.1 10*3/uL (0.0-0.87); Eosinophils % 0.6 % (0.00-10.9); Hematocrit 41.8 VOL% (42.0-52.0); Hemoglobin 13.6 GM/DL (14.0-18.0); Immature Granulocytes % 0.3 %; Immature Granulocytes Absolute 0.03 #; Lymphocytes # 0.6 10*3/uL (1.4-4.0); Mean Corpuscular HGB Conc 32.5 GM/DL (32-36); Mean Corpuscular Volume 85.1 FL (87-102); Mean Platelet Volume 10.6 FL (9.6-12.0); Monocytes % 4.9 % (1.7-12.7); Neutrophils % 87.5 % (38.7-73.9); Platelet Count 228 T/CUMM (130-400); Red Blood Count 4.91 MC/CUMM (3.8-5.5); Red Cell Distribution Width 15.5 % (9.3-17.3); White Blood Count 10.8 T/CUMM (4-12)
[2021-04-03 04:56] LABS: PT Patient Result 11.3 SECS (10.5-12.0); Partial Thromboplastin Time 24.6 SECS (23.9-33.8)
[2021-04-03 05:23] LABS: PT Patient Result 11.2 SECS (10.5-12.0)
[2021-04-03 05:23] LABS: Albumin 3.8 G/DL (3.4-5.0); Bilirubin,Total 0.8 MG/DL (0.20-1.00); Calcium 9.1 MG/DL (8.5-10.1); Osmolality,Calculated 290.1 MOS/KG (273-304); Potassium 4.4 MMOL/L (3.5-5.1)
[2021-04-03] MEDS ORDERED: ENOXAPARIN 100 MG/ML SYRINGE SUBCUT STA (05:56)
[2021-04-03] MEDS ORDERED: ALUMINUM/MAGNES/SIMETH MAX STR 30 ML UDCUP PO PRN (09:02)
[2021-04-03] MEDS ORDERED: DEXTROSE 50% 25 GM/50 ML VIAL IV PRN (09:02)
[2021-04-03] MEDS ORDERED: ONDANSETRON 4 MG/2 ML VIAL IV PRN (09:02)
[2021-04-03] MEDS ORDERED: GLUCAGON 1 MG VIAL IM PRN (09:02)
[2021-04-03] MEDS: LACTATED RINGERS 1,000 ML IV SCH (12:22)
[2021-04-03] MEDS: PANTOPRAZOLE 40 MG TABLET PO SCH (12:23)
[2021-04-03] MEDS: ASPIRIN EC 81 MG TABLET PO SCH (12:23)
[2021-04-03] MEDS: ENOXAPARIN 40 MG/0.4 ML SYRINGE SUBCUT SCH (12:24)
[2021-04-03] MEDS: carvediloL 12.5 MG TABLET PO SCH ×2 (12:25→21:26)
[2021-04-03] MEDS: INSULIN LISPRO 100 UNIT/ML SUBCUT SCH ×3 (12:52→21:26)
[2021-04-03] MEDS: FUROSEMIDE 40 MG TABLET PO SCH (15:12)
[2021-04-04 01:11] LABS: Barbiturates Screen,Urine Negative (Negative); Benzodiazepines Screen,Urine Negative (Negative); Cannabinoid Screen,Urine Negative (Negative); Opiate Screen,Urine Positive (Negative); Phencyclidine Screen,Urine Negative (Negative)
[2021-04-04] MEDS: LACTATED RINGERS 1,000 ML IV SCH ×2 (01:56→16:22)
[2021-04-04 05:08] LABS: Basophils # 0.1 10*3/uL (0.0-0.2); Basophils % 1.5 % (0.0-0.8); Eosinophils # 0.3 10*3/uL (0.0-0.87); Eosinophils % 5.3 % (0.00-10.9); Hematocrit 43.1 VOL% (42.0-52.0); Hemoglobin 13.1 GM/DL (14.0-18.0); Immature Granulocytes % 0.2 %; Immature Granulocytes Absolute 0.01 #; Lymphocytes # 1.6 10*3/uL (1.4-4.0); Lymphocytes % 32.6 % (21.2-54.2); Mean Corpuscular HGB Conc 30.4 GM/DL (32-36); Mean Corpuscular Volume 89.4 FL (87-102); Mean Platelet Volume 10.7 FL (9.6-12.0); Monocytes % 8.2 % (1.7-12.7); Neutrophils % 52.2 % (38.7-73.9); Platelet Count 192 T/CUMM (130-400); Red Blood Count 4.82 MC/CUMM (3.8-5.5); Red Cell Distribution Width 15.8 % (9.3-17.3); White Blood Count 4.8 T/CUMM (4-12)
[2021-04-04 05:29] LABS: Platelet Estimate Adequate
[2021-04-04 05:30] LABS: Calcium 8.2 MG/DL (8.5-10.1); High Sensitive Troponin I* 117.7 ng/L (0-78); Osmolality,Calculated 286.5 MOS/KG (273-304); Potassium 3.6 MMOL/L (3.5-5.1)
[2021-04-04] MEDS: PANTOPRAZOLE 40 MG TABLET PO SCH (09:10)
[2021-04-04] MEDS: carvediloL 12.5 MG TABLET PO SCH (09:10)
[2021-04-04] MEDS: INSULIN LISPRO 100 UNIT/ML SUBCUT SCH ×3 (09:11→16:40)
[2021-04-04] MEDS: FUROSEMIDE 40 MG TABLET PO SCH ×2 (09:11→16:04)
[2021-04-04] MEDS: ENOXAPARIN 40 MG/0.4 ML SYRINGE SUBCUT SCH (09:12)
[2021-04-04] MEDS: ASPIRIN EC 81 MG TABLET PO SCH (09:12)
[2021-04-04 14:18] VITALS: BP 112/65
== END 2021-04-04 17:58 | disposition home or self-care (01) ==
LOC: N.ED 04:08 → SUATTDRO 07:36 → N.EDINP 07:36 → INTOOBSV 07:36 → N.TELES 09:28
PROVIDERS: ADMIT Internal Medicine; ATTEND Hospitalist

== ENCOUNTER 2021-10-15 00:52 | Observation (INO) ==
[2021-10-15] MEDS ORDERED: ASPIRIN 325 MG TABLET PO STA (02:15)
[2021-10-15] MEDS ORDERED: FUROSEMIDE 100 MG/10 ML VIAL IV STA (02:15)
[2021-10-15] MEDS ORDERED: ALBUTEROL/IPRATROPIUM 3 ML NEB RESP TX STA (02:15)
[2021-10-15] MEDS ORDERED: ONDANSETRON 4 MG/2 ML VIAL IV STA (02:15)
[2021-10-15] MEDS ORDERED: NITROGLYCERIN 2% OINT 1 INCH/GM PACK TOP STA (02:15)
[2021-10-15] MEDS ORDERED: MORPHINE 2 MG/1 ML SYRINGE IV STA (02:15)
[2021-10-15 03:09] LABS: Basophils # 0.1 10*3/uL (0.0-0.2); Eosinophils # 0.4 10*3/uL (0.0-0.87); Eosinophils % 5.4 % (0.00-10.9); Hematocrit 38.2 VOL% (42.0-52.0); Hemoglobin 11.8 GM/DL (14.0-18.0); Immature Granulocytes % 0.3 %; Immature Granulocytes Absolute 0.02 #; Lymphocytes # 1.2 10*3/uL (1.4-4.0); Lymphocytes % 15.9 % (21.2-54.2); Mean Corpuscular HGB Conc 30.9 GM/DL (32-36); Mean Platelet Volume 10.8 FL (9.6-12.0); Monocytes % 9.9 % (1.7-12.7); Neutrophils % 67.5 % (38.7-73.9); Platelet Count 159 T/CUMM (130-400); Red Blood Count 4.44 MC/CUMM (3.8-5.5); Red Cell Distribution Width 17.5 % (9.3-17.3); White Blood Count 7.4 T/CUMM (4-12)
[2021-10-15 03:34] LABS: Bilirubin,Total 0.6 MG/DL (0.20-1.00); Osmolality,Calculated 283.3 MOS/KG (273-304); Potassium 3.6 MMOL/L (3.5-5.1); Total Protein 6.7 G/DL (6.4-8.2)
[2021-10-15] MEDS ORDERED: MAGNESIUM SULF RIDER 2 GM/50 ML PREMIX IV STA (03:38)
[2021-10-15] MEDS ORDERED: ACETAMINOPHEN 325 MG TABLET PO PRN (05:56)
[2021-10-15] MEDS ORDERED: ONDANSETRON 4 MG/2 ML VIAL IV PRN (05:56)
[2021-10-15] MEDS: SODIUM CHLORIDE 0.9% 1,000 ML IV SCH (06:22)
[2021-10-15] MEDS: ALBUTEROL/IPRATROPIUM 3 ML NEB RESP TX SCH ×5 (07:29→23:40)
[2021-10-15] MEDS: FUROSEMIDE 40 MG/4 ML VIAL IV SCH ×2 (08:45→16:00)
[2021-10-15] MEDS: DOCUSATE SODIUM 100 MG CAPSULE PO SCH ×2 (08:46→22:09)
[2021-10-15] MEDS: MORPHINE 2 MG/1 ML SYRINGE IV PRN ×3 (08:46→22:14)
[2021-10-15] MEDS: PANTOPRAZOLE 40 MG TABLET PO SCH (08:46)
[2021-10-15] MEDS ORDERED: MAGNESIUM SULF RIDER 4 GM/100 ML PREMIX IV PRN (13:31)
[2021-10-15] MEDS ORDERED: MAGNESIUM SULF RIDER 2 GM/50 ML PREMIX IV PRN (13:31)
[2021-10-15] MEDS ORDERED: POTASSIUM CHLORIDE RIDER 10 MEQ/100 ML PREMIX IV PRN (13:31)
[2021-10-15 13:51] LABS: Bilirubin,Urine Negative (Negative); Blood, Urine Negative (Negative); Glucose,Urine (UA) Negative (Negative); Hyaline Casts,Urine 1 /LPF (0-3); Ketones,Urine Negative (Negative); Mucus,Urine Occasional /LPF (Occasional); Nitrite,Urine Negative (Negative); Protein,Urine Negative; RBC,Urine 1 /HPF (0-4); Urine Appearance CLEAR (Clear); Urine Color Colorless (Yellow); Urine Specific Gravity 1.005 (1.001-1.035); Urine Urobilinogen < 2.0 EU/DL (<2.0)
[2021-10-15 14:12] LABS: Barbiturates Screen,Urine Negative (Negative); Benzodiazepines Screen,Urine Negative (Negative); Cannabinoid Screen,Urine Negative (Negative); Opiate Screen,Urine Positive (Negative); Phencyclidine Screen,Urine Negative (Negative)
[2021-10-15] MEDS: cefTRIAXone 1,000 MG in SODIUM CHLORIDE 0.9% 100 ML IV SCH (16:00)
[2021-10-15] MEDS: hydrALAZINE 25 MG TABLET PO SCH ×2 (16:57→22:09)
[2021-10-15] MEDS: carvediloL 3.125 MG TABLET PO SCH (22:09)
[2021-10-16] MEDS: ALBUTEROL/IPRATROPIUM 3 ML NEB RESP TX SCH ×6 (03:05→23:06)
[2021-10-16 06:51] LABS: Basophils # 0.1 10*3/uL (0.0-0.2); Basophils % 1.2 % (0.0-0.8); Eosinophils # 0.5 10*3/uL (0.0-0.87); Hematocrit 37.6 VOL% (42.0-52.0); Hemoglobin 11.6 GM/DL (14.0-18.0); Immature Granulocytes % 0.3 %; Immature Granulocytes Absolute 0.02 #; Lymphocytes # 1.2 10*3/uL (1.4-4.0); Lymphocytes % 20.2 % (21.2-54.2); Mean Corpuscular HGB Conc 30.9 GM/DL (32-36); Mean Corpuscular Volume 86.4 FL (87-102); Mean Platelet Volume 11.4 FL (9.6-12.0); Monocytes % 10.7 % (1.7-12.7); Neutrophils % 59.6 % (38.7-73.9); Platelet Count 169 T/CUMM (130-400); Red Blood Count 4.35 MC/CUMM (3.8-5.5); Red Cell Distribution Width 17.9 % (9.3-17.3)
[2021-10-16 07:20] LABS: Albumin 2.6 G/DL (3.4-5.0); Bilirubin,Total 0.8 MG/DL (0.20-1.00); Calcium 7.8 MG/DL (8.5-10.1); Osmolality,Calculated 287.1 MOS/KG (273-304); Total Protein 6.5 G/DL (6.4-8.2)
[2021-10-16] MEDS: SODIUM CHLORIDE 0.9% 1,000 ML IV SCH (07:47)
[2021-10-16 07:49] LABS: HIV Antigen/Antibody Result Nonreactive (Nonreactive)
[2021-10-16] MEDS: ISOSORBIDE MONONITRATE 30 MG TABLET PO SCH (08:30)
[2021-10-16] MEDS: PANTOPRAZOLE 40 MG TABLET PO SCH (08:30)
[2021-10-16] MEDS: DOCUSATE SODIUM 100 MG CAPSULE PO SCH ×2 (08:30→23:16)
[2021-10-16] MEDS: POTASSIUM CHLORIDE 20 MEQ TABLET PO PRN ×4 (08:30→16:14)
[2021-10-16] MEDS: hydrALAZINE 25 MG TABLET PO SCH ×3 (08:30→23:26)
[2021-10-16] MEDS: ASPIRIN EC 81 MG TABLET PO SCH (08:31)
[2021-10-16] MEDS: carvediloL 3.125 MG TABLET PO SCH ×2 (08:31→23:16)
[2021-10-16] MEDS: FUROSEMIDE 40 MG/4 ML VIAL IV SCH (08:31)
[2021-10-16] MEDS: MORPHINE 2 MG/1 ML SYRINGE IV PRN ×2 (08:32→23:26)
[2021-10-16] MEDS: cefTRIAXone 1,000 MG in SODIUM CHLORIDE 0.9% 100 ML IV SCH (10:50)
[2021-10-16] MEDS: CLINDAMYCIN INJ 600 MG/50 ML PREMIX IV SCH (16:24)
[2021-10-16] MEDS: POTASSIUM CHLORIDE 20 MEQ TABLET PO SCH (23:16)
[2021-10-17] MEDS: CLINDAMYCIN INJ 600 MG/50 ML PREMIX IV SCH ×2 (01:10→09:33)
[2021-10-17] MEDS: ALBUTEROL/IPRATROPIUM 3 ML NEB RESP TX SCH ×2 (03:00→07:30)
[2021-10-17 05:42] LABS: Basophils % 0.3 % (0.0-0.8); Eosinophils # 0.6 10*3/uL (0.0-0.87); Eosinophils % 7.6 % (0.00-10.9); Hematocrit 38.2 VOL% (42.0-52.0); Hemoglobin 11.6 GM/DL (14.0-18.0); Immature Granulocytes % 0.3 %; Immature Granulocytes Absolute 0.02 #; Lymphocytes # 0.8 10*3/uL (1.4-4.0); Lymphocytes % 10.1 % (21.2-54.2); Mean Corpuscular HGB Conc 30.4 GM/DL (32-36); Mean Platelet Volume 10.8 FL (9.6-12.0); Monocytes % 7.5 % (1.7-12.7); Neutrophils % 74.2 % (38.7-73.9); Platelet Count 175 T/CUMM (130-400); Red Blood Count 4.39 MC/CUMM (3.8-5.5); Red Cell Distribution Width 17.8 % (9.3-17.3)
[2021-10-17 06:03] LABS: Albumin 2.6 G/DL (3.4-5.0); Bilirubin,Total 0.6 MG/DL (0.20-1.00); Calcium 7.9 MG/DL (8.5-10.1); Osmolality,Calculated 279.5 MOS/KG (273-304); Potassium 4.1 MMOL/L (3.5-5.1); Total Protein 6.6 G/DL (6.4-8.2)
[2021-10-17 06:04] LABS: Eosinophils 9 % (0-10); Hypochromia Slight; Lymphocytes 10 % (20-55); Microcytosis Slight; Platelet Estimate Adequate; Segmented Neutrophils 74 % (50-85); Total Cells Counted 100
[2021-10-17 07:50] VITALS: BP 128/79
[2021-10-17] MEDS: cefTRIAXone 1,000 MG in SODIUM CHLORIDE 0.9% 100 ML IV SCH (08:48)
[2021-10-17] MEDS: ISOSORBIDE MONONITRATE 30 MG TABLET PO SCH (08:49)
[2021-10-17] MEDS: hydrALAZINE 25 MG TABLET PO SCH (08:49)
[2021-10-17] MEDS: ASPIRIN EC 81 MG TABLET PO SCH (08:49)
[2021-10-17] MEDS: DOCUSATE SODIUM 100 MG CAPSULE PO SCH (08:49)
[2021-10-17] MEDS: PANTOPRAZOLE 40 MG TABLET PO SCH (08:50)
[2021-10-17] MEDS: POTASSIUM CHLORIDE 20 MEQ TABLET PO SCH (08:50)
[2021-10-17] MEDS: MORPHINE 2 MG/1 ML SYRINGE IV PRN (08:51)
[2021-10-17] MEDS ORDERED: FUROSEMIDE 40 MG TABLET PO SCH (09:00)
[2021-10-17] MEDS: carvediloL 3.125 MG TABLET PO SCH (09:35)
== END 2021-10-17 12:42 | disposition home or self-care (01) ==
LOC: EDUNIT# → N.ED 00:52 → N.EDINP 00:52 → N.5E 16:30
PROVIDERS: ADMIT Family Medicine; ATTEND Family Medicine